=== PATIENT | male | born 1960 | race Caucasian/White ===

== ENCOUNTER 2018-05-06 18:31 | Emergency (ER) | payer OTHER ==
[~2018-05-06] VITALS: Ht 185.4 cm; Wt 131.5 kg
[2018-05-06] MEDS ORDERED: UNICOMPLEX M TA1 TA1 PO (18:45)
[2018-05-06] MEDS ORDERED: LEVOTHYROXINE100 MC1 PO (18:45)
[2018-05-06] MEDS ORDERED: PREDNISONE 20 M20 MG PO (19:15)
[2018-05-06] MEDS ORDERED: CLEOCIN HCL300 MG PO (19:15)
[2018-05-06 19:49] VITALS: BP 143/81
== END 2018-05-06 19:51 | disposition home or self-care (01) ==
LOC: M.ERS 18:31
DX: T63.301A Toxic effect of unspecified spider venom, accidental (unintentional), initial encounter (principal); Z90.49 Acquired absence of other specified parts of digestive tract; Z85.59 Personal history of malignant neoplasm of other urinary tract organ; Y92.89 Other specified places as the place of occurrence of the external cause